=== PATIENT | female | born 1995 | race Hispanic/Latino ===

== ENCOUNTER 2019-01-09 01:17 | Emergency (ER) | payer OTHER ==
[2019-01-09 01:50] LABS: APPEARANCE,URINE Cloudy (CLEAR); BILIRUBIN,URINE Negative (NEGATIVE); COLOR,URINE Yellow (YELLOW); GLUCOSE, URINE (UA) Negative (NEGATIVE); KETONES,URINE Negative (NEGATIVE); LEUKOCYTE ESTERASE ,URINE Small (NEGATIVE); NITRATE,URINE Negative (NEGATIVE); OCCULT BLOOD,URINE Negative (NEGATIVE); PROTEIN,URINE Negative (NEGATIVE)
[2019-01-09 01:59] LABS: HCG,QUAL RESULT NEGATIVE (NEGATIVE)
[2019-01-09 02:36] LABS: BACTERIA,URINE Few /HPF (None Seen); RBC,URINE 0-1 /HPF (0-1); WBC,URINE 0-1 /HPF (0-1)
== END 2019-01-09 02:37 | disposition home or self-care (01) ==
LOC: EDH 01:17
DX: K52.89 Other specified noninfective gastroenteritis and colitis (principal)
CPT/HCPCS: 81001; 81025